=== PATIENT | male | born 1935 | race Caucasian/White ===

== ENCOUNTER 2017-04-02 21:06 | Emergency (ER) | payer OTHER, BC ==
[~2017-04-02] VITALS: Ht 177.8 cm; Wt 77.1 kg
--- NOTE | ~2017-04-02 | EKG ---
[address] [employer] [place] [address] ELECTROCARDIOGRAM REPORT Name: DANIEL FERRER [facility] [id number] Admission: 04/02/17 Attend Phys: Discharge: 04/03/17 Date of : 35 Report #: [id number] THIS REPORT FOR: //name// [facility] ED Test Date: 2017-04-02 Test Time: 21:18:55 Pat Name: DANIEL FERRER Department: Room: Gender: M Ui Designer: 99 : 1935 Requested By: Jarett Crowe Order Number: [id number] MD: Stephen Remy Measurements Intervals [place] Rate: 101 P: [place]: QRS: -25 QRSD: 85 T: 55 QT: 329 QTc: 427 Interpretive Statements Atrial fibrillation Ventricular premature complex Borderline left axis deviation Anteroseptal infarct, age indeterminate Compared to ECG 02/05/2017 13:17:32 Ventricular premature complex(es) now present Myocardial infarct finding now present Poor R-wave progression no longer present Electronically Signed On 04-03-2017 17:15:04 TREATMENT PLANT OPERATOR by Stephen Remy [email or web address] <ELECTRONICALLY SIGNED> By: Stephen Remy MD 04/03/17 1715 17 17 Stephen Remy MD /EPI
[~2017-04-02 21:06] MED LIST: CARDIZEM CD120 MG PO; COUMADIN 5 MG TA5 M1 PO
[2017-04-02 23:01] LABS: ABSOLUTE NEUTROPHILS 4.9 thou/uL (1.4-8.2); BASOPHILS 1.2 % (0.0-2.0); EOSINOPHILS 4.3 % (0.0-3.0); LYMPHOCYTES 11.9 % (24.0-44.0); MCHC 34.2 g/dL (28.0-37.0); MCV 90.6 fL (80.0-100.0); MONOCYTES 8.2 % (1.0-8.0); POLYS 74.4 % (36.0-66.0); RBC 4.19 mil/uL (4.50-6.00); RDW 14.9 % (10.5-14.5); WBC 6.5 thou/uL (4.0-11.0)
[2017-04-02 23:08] LABS: ANION GAP 6 mmol/L (7-16); BUN 18 mg/dL (7-18); CALCIUM 9.4 mg/dL (8.5-10.1); CHLORIDE 106 mmol/L (98-107); CO2 27 mmol/L (21-32); CREATININE 1.2 mg/dL (0.7-1.3); GLUCOSE 107 mg/dL (74-106); SODIUM 139 mmol/L (136-145)
[2017-04-02 23:16] LABS: ALBUMIN 3.1 g/dL (3.4-5.0); MAGNESIUM 1.7 mg/dL (1.8-2.4); SGOT 33 U/L (15-37); SGPT 20 U/L (30-65); TOTAL BILIRUBIN 0.5 mg/dL (<0.1-1.0); TOTAL PROTEIN 6.6 g/dL (6.4-8.2); TROPONIN-I < 0.04 ng/mL (<0.06)
[2017-04-02 23:17] LABS: POTASSIUM 4.9 mmol/L (3.5-5.1)
[2017-04-02 23:20] LABS: PLATELET COUNT 247 thou/uL (150-400)
[2017-04-02] MEDS ORDERED: AUGMENTIN 500-1 EACH PO (23:34)
[2017-04-03 00:04] VITALS: BP 156/86
== END 2017-04-03 00:05 | disposition home or self-care (01) ==
LOC: ER 21:06
PROVIDERS: Emergency Medicine
DX: J18.9 Pneumonia, unspecified organism (principal); J90 Pleural effusion, not elsewhere classified; Z86.73 Personal history of transient ischemic attack (TIA), and cerebral infarction without residual deficits; Z88.1 Allergy status to other antibiotic agents; Z87.891 Personal history of nicotine dependence

== ENCOUNTER 2018-03-03 | Inpatient (IN) | payer OTHER, BC ==
[2018-03-03] VITALS (8 sets, daily range): BP systolic 104–148; BP diastolic 52–78
[~2018-03-03] VITALS: Ht 177.8 cm; Wt 79.0 kg
[~2018-03-03] MED LIST changes: +AUGMENTIN 500-1 EACH PO
--- NOTE | ~2018-03-03 | HC ---
[facility] [address] [place] [address] CONSULTATION Name: DANIEL FERRER Jonelle Room #: 356-P [facility] IN .R.#: [id number] Admission: 03/03/18 Attend Phys: Clinton Benjamin MD Discharge: Date of : 35 Report #: [id number] THIS REPORT FOR: //name// CC: Clinton Benjamin DATE OF SERVICE: 03/03/2018 INPATIENT CONSULTATION PRIMARY CARE PHYSICIAN: Clinton Benjamin M.D. REASON FOR CONSULTATION: Shortness of breath. HISTORY OF PRESENT ILLNESS: The patient is an 82-year-old man with a history of moderate mitral valve stenosis in the setting of normal LV function and persistent atrial fibrillation, who presents with 1-2 days of significant dyspnea. He was placed on oxygen 2 liters, with improvement of his symptoms. His oxygen level had improved from the low 90s to 98%. He was given IV Lasix overnight and his symptoms of shortness of breath have improved. We have been following him for his mitral valve disease and rate control strategy for his atrial fibrillation. He is fully anticoagulated. He clinically is without complaints of chest pressure or tightness. His initial ECG did not show any acute ST-segment changes and his troponin levels are normal. PAST MEDICAL HISTORY: History of mitral valve stenosis, previously thought to be in the moderate range, normal LV systolic function, persistent atrial fibrillation, oral anticoagulation with a novel agent and previous pneumonia. ALLERGIES: HE HAS ALLERGIES TO DOXYCYCLINE. HOME MEDICATIONS: Include Cardizem 120 mg daily and warfarin 5 mg daily. SOCIAL HISTORY: Nonsmoker. REVIEW OF SYSTEMS: GASTROINTESTINAL: No nausea or vomiting. GENITOURINARY: No dysuria or hematuria. PULMONARY: Positive shortness of breath, positive cough. CARDIOVASCULAR: Positive shortness of breath. No chest pain. No chest pressure. No palpitations. No evidence of syncope or seizures. HEMATOLOGIC: No bleeding. GENITOURINARY: No dysuria. MUSCULOSKELETAL: No falls. [facility] [address] [place] [address] CONSULTATION Name: DANIEL FERRER Room #: [facility]#: [id number] Admission: 03/03/18 Attend Phys: Clinton Benjamin MD Discharge: Date of : 35 Report #: [id number] PHYSICAL EXAMINATION: VITAL SIGNS: Blood pressure is 110/65; pulse 96, in atrial fibrillation and temperature 36.7. GENERAL: This is a pleasant elderly male who is alert, oriented, in no apparent distress. HEENT: Eyes are intact. No facial asymmetry. NECK: Supple. No jugular venous distention. Upstrokes are normal and strong. CARDIOVASCULAR EXAMINATION: Irregular. There is a faint apical murmur. LUNGS: Clear to auscultation, but diminished breath sounds. ABDOMEN: Nontender. EXTREMITIES: No peripheral edema. NEUROLOGIC: There are no focal deficits. PSYCHIATRIC: The patient has appropriate mood and affect. DIAGNOSTIC DATA: Chest x-ray shows bilateral perihilar congestion and pulmonary edema, more prominent on the right than the left. KUB shows small and large bowel loops are normal, with no evidence of obstruction or ileus. LABORATORY DATA: Sodium is 137, potassium 4.3, chloride 103, CO2 is 22, BUN is 24 and creatinine is 1.0. INR is 2.2. IMPRESSION AND PLAN: 1. Acute diastolic heart failure. I think he will benefit from oral Lasix on discharge, probably 40 mg daily with 20 mEq of potassium. I will give him another dose of Lasix before he discharges today. 2. Persistent atrial fibrillation. We will continue with a rate control strategy; likely this was the cause of his heart failure. I am increasing his diltiazem to 180 mg daily. 3. Mitral valve stenosis. We will check an echocardiogram. By: [id number] Segundo Zuniga MD, FACC /nt
--- NOTE | ~2018-03-03 | 2DMMODE ---
[facility] [place] [address] 2 D/M-MODE ECHOCARDIOGRAM Name: DANIEL FERRER Room #: 356-P [facility] IN [facility].#: [id number] Admission: 03/03/18 Attend Phys: Clinton Benjamin, Discharge: Date of : 35 Date of Service: 03/03/18 1505 Report #: [id number] THIS REPORT FOR: //name// APPROVED REPORT Study performed: 03/03/2018 10:00:28 EXAM: Comprehensive 2D, Doppler, and color-flow Echocardiogram with contrast Patient Location: Bedside Room #: [facility] Status: routine BSA: 1.97 HR: 94 bpm BP: 110/65 mmHg Rhythm: Atrial Fibrillation Other Information Study Quality: Poor Indications Congestive Heart Failure Mitral Valve Disease CVA/TIA Atrial Fibrillation Dyspnea Echo Enhancing Agent Indication: Endocardial border delineation Agent(s) / Amount(s) Used: Optison 10 cc 2D Dimensions RVDd: 34.05 mm IVSd: 12.21 (7-11mm) LVOT Diam: 22.73 (18-24mm) LVDd: 44.95 mm PWd: 13.13 (7-11mm) Ascending Ao: 30.50 (22-36mm) LVDs: 28.53 (25-40mm) Aortic Root: 35.72 mm IVC: 17.00 mm Volumes Left Atrial Volume (Systole) Single Plane 4CH: 98.00 mL Aortic Valve AoV Peak Jonas.: 1.52 m/s AO Peak Gr.: 11.97 mmHg LVOT Max P.16 mmHg [facility] [address] [place] [address] 2 D/M-MODE ECHOCARDIOGRAM Name: DANIEL FERRER [facility] [id number] Admission: 03/03/18 Attend Phys: Clinton Benjamin, Discharge: Date of : 35 Date of Service: 03/03/18 1505 Report #: [id number] LVOT Max V: 0.20 m/s SUSAN Vmax: 0.54 cm2 Mitral Valve MV Peak Gr.: 13.03 mmHg MV Mean Gr.: 7.22 mmHg E/A Ratio: 1.5 MV Decel. Time: 100.64 ms MV E Max Jonas.: 0.21 m/s MV A Jonas.: 0.14 m/s MV Max Jonas.: 1.80 m/s MV Mean Jonas.: 1.30 m/s MV VTI: 594.42 mm MVA (PHT): 0.48 cm2 Pulmonary Valve PV Peak Jonas.: 1.16 m/s PV Peak Gr.: 5.44 mmHg Tricuspid Valve TR Peak Jonas.: 2.44 m/s RAP Estimate: 5.00 mmHg TR Peak Gr.: 23.90 mmHg PA Pressure: 29.00 mmHg Left Ventricle The left ventricle is normal size. There is normal LV segmental wall motion. Mild concentric left ventricular hypertrophy. The left ventricular systolic function is normal. The left ventricular ejection fraction is within the normal range. LVEF is 65-70%. This study is not technically sufficient to allow evaluation of the LV diastolic function due to atrial fibrillation. Right Ventricle The right ventricle is normal size. The right ventricular systolic function is normal. Atria Left atrium is dilated. Right atrium is dilated. Aortic Valve The aortic valve is normal in structure. Aortic valve is mildly calcified. Mild aortic regurgitation. There is no aortic valvular stenosis. Mitral Valve Mitral valve leaflets are moderately thickened. Severe mitral annular calcification. There is no mitral valve regurgitation noted. Moderate mitral stenosis. [address] [address] 2 D/M-MODE ECHOCARDIOGRAM Name: DANIEL FERRER Room #: 356-P [facility] IN ..#: [id number] Admission: 03/03/18 Attend Phys: Clinton Benjamin, Discharge: Date of : 35 Date of Service: 03/03/18 1505 Report #: [id number] Tricuspid Valve Tricuspid valve is not well visualized. Mild tricuspid regurgitation. Estimated PAP of 29 mmHg. Pulmonic Valve Pulmonic valve is not well visualized. Mild pulmonic regurgitation. Great Vessels The aortic root is normal in size. IVC is normal in size and collapses >50% with inspiration. Pericardium There is no pericardial effusion. Left pleural effusion noted. <Conclusion> LVEF is 65-70%. Mild concentric left ventricular hypertrophy. There is normal LV segmental wall motion. Left atrium is dilated. Right atrium is dilated. There is no aortic valvular stenosis. Mild aortic regurgitation. Moderate mitral stenosis. There is no mitral valve regurgitation noted. <ELECTRONICALLY SIGNED> By: Segundo Zuniga MD, FACC 03/03/18 1505 1505 1505 Segundo Zuniga MD, FACC /INF
--- NOTE | ~2018-03-03 | EKG ---
[address] [place] [address] ELECTROCARDIOGRAM REPORT Name: DANIEL FERRER Room #: 356-P ADM IN M.R.#: [id number] Admission: 03/03/18 Attend Phys: Clinton Benjamin MD Discharge: Date of : 35 Report #: [id number] THIS REPORT FOR: //name// [facility] ED Test Date: 2018-03-03 Test Time: 00:44:07 Pat Name: DANIEL FERRER Department: Room: 356 Gender: M Budget Consultant: KMHayder : 1935 Requested By: Jarett Crowe Order Number: [id number] MD: Nilson Drake Measurements Intervals [place] Rate: 87 P: [place]: QRS: -12 QRSD: 80 T: 37 QT: 361 QTc: 435 Interpretive Statements Atrial fibrillation Anteroseptal infarct, age indeterminate Compared to ECG 04/02/2017 21:18:55 No significant change was found Electronically Signed On 03-03-2018 8:38:58 REGIONAL SERVICE MANAGER by Nilson Drake [email or web address] <ELECTRONICALLY SIGNED> By: Nilson Drake MD, [facility] 03/03/18 0838 0044 004 Nilson Drake MD, FAC /EPI
[2018-03-03 00:49] LABS: ABSOLUTE NEUTROPHILS 5.7 thou/uL (1.4-8.2); BASOPHILS 0.8 % (0.0-2.0); EOSINOPHILS 3.3 % (0.0-3.0); HEMATOCRIT 36.1 % (42.0-52.0); HEMOGLOBIN 12.3 gm/dL (14.0-18.0); LYMPHOCYTES 7.1 % (24.0-44.0); MCH 30.7 pg (26.0-34.0); MCV 90.1 fL (80.0-100.0); MONOCYTES 8.4 % (1.0-8.0); PLATELET COUNT 313 thou/uL (150-400); POLYS 80.4 % (36.0-66.0); RBC 4.01 mil/uL (4.50-6.00); RDW 13.6 % (10.5-14.5); WBC 7.1 thou/uL (4.0-11.0)
[2018-03-03 00:59] LABS: ANION GAP 12 mmol/L (7-16); BUN 24 mg/dL (7-18); CALCIUM 9.3 mg/dL (8.5-10.1); CHLORIDE 103 mmol/L (98-107); CO2 22 mmol/L (21-32); GLUCOSE 134 mg/dL (74-106); POTASSIUM 4.3 mmol/L (3.5-5.1); SODIUM 137 mmol/L (136-145)
[2018-03-03 01:02] LABS: APTT 31.8 Seconds (24.5-32.8); INR 2.2; PROTIME 23.3 Seconds (9.3-11.4)
[2018-03-03 01:08] LABS: ALBUMIN 2.8 g/dL (3.4-5.0); MAGNESIUM 1.6 mg/dL (1.8-2.4); SGOT 15 U/L (15-37); SGPT 15 U/L (30-65); TOTAL BILIRUBIN 0.6 mg/dL (<0.1-1.0); TOTAL PROTEIN 6.6 g/dL (6.4-8.2); TROPONIN-I <0.06 ng/mL (<0.06)
[2018-03-03] MEDS ORDERED: TYLENOL EXTRA500 MG PO (03:28)
[2018-03-04 03:48] VITALS: BP 101/63
[2018-03-04] MEDS ORDERED: CARDIZEM CD 18180 M3 PO (07:36)
[2018-03-04] MEDS ORDERED: LASIX 40 MG TAB40 M1 PO (07:37)
[2018-03-04] MEDS ORDERED: POTASSIUM20 PO (07:38)
[2018-03-04 07:44] VITALS: BP 101/63
[2018-03-04 07:55] VITALS: BP 132/70
[2018-03-04 11:40] VITALS: BP 112/59
[2018-03-04 13:16] VITALS: BP 101/63
== END 2018-03-04 14:32 | disposition home health service (06) | DRG 291 ==
LOC: ER → EROBS 01:39 → 3W 01:39 → ENTRNSPT 03-04 13:44 → EDTRNSPTSTS 03-04 13:46 → 3W 03-04 14:32
PROVIDERS: Emergency Medicine
DX: I50.33 Acute on chronic diastolic (congestive) heart failure (principal); E43 Unspecified severe protein-calorie malnutrition; I48.1 Persistent atrial fibrillation; E88.09 Other disorders of plasma-protein metabolism, not elsewhere classified; I05.0 Rheumatic mitral stenosis; I35.1 Nonrheumatic aortic (valve) insufficiency; Z86.73 Personal history of transient ischemic attack (TIA), and cerebral infarction without residual deficits; Z92.21 Personal history of antineoplastic chemotherapy; Z88.8 Allergy status to other drugs, medicaments and biological substances; Z87.891 Personal history of nicotine dependence; Z79.01 Long term (current) use of anticoagulants; Z93.3 Colostomy status; Z85.038 Personal history of other malignant neoplasm of large intestine; Z92.3 Personal history of irradiation; Z79.899 Other long term (current) drug therapy
CPT/HCPCS: 10879

== ENCOUNTER 2018-09-26 09:35 | Inpatient (IN) | payer OTHER, BC ==
[~2018-09-26] VITALS: Ht 177.8 cm; Wt 77.1 kg
--- NOTE | ~2018-09-26 | O ---
[facility] [place] [address] OPERATIVE REPORT Name: DANIEL FERRER Jonelle Room #: 464-P ADM IN M.R.#: [id number] Admission: 09/26/18 ������������������ Attend Phys: Clinton Benjamin MD Discharge: ������������������ Date of : 35 Report #: [id number] THIS REPORT FOR: //name// CC: Clinton Benjamin MD DATE OF SERVICE: 09/26/2018 PREOPERATIVE DIAGNOSIS: Incarcerated left inguinal hernia. POSTOPERATIVE DIAGNOSIS: Incarcerated left inguinal hernia. OPERATIVE PROCEDURE DONE: Open repair of left-sided incarcerated inguinal hernia. OPERATING SURGEON: Can Khan MD INDICATIONS FOR THE PROCEDURE: The patient is an 83-year-old male, who presented with complaints of painful left-sided inguinal hernia. He has been having a hernia for many years, the hernia was noted to be reducible and there was tenderness over the hernia. As the patient has had multiple open abdominal surgeries, the patient was advised open repair of the same. DESCRIPTION OF PROCEDURE: After explaining to the patient in detail, an informed consent was obtained. The patient was identified in the preoperative holding area. The patient was transferred to the operating room and was placed in supine position. Sequential compression devices were placed for DVT prophylaxis. Preoperative antibiotics were given. After induction of anesthesia, the abdomen was prepped and draped in a sterile fashion. Left inguinal incision measuring approximately about 6 cm, approximately about 2 cm above the level of the inguinal ligament was made. The skin and subcutaneous tissue was divided. The external oblique was divided. The cord and cord structures were then identified along with the hernia which was gently dissected. The sac was gently dissected off and was freed from the cord and cord structures. Hernia was partly reduced. I then nevertheless still opened the hernial sac to identify the structures and the bowel, everything appeared to be viable. There were no features of strangulation or ischemic bowel. I then completely reduced the hernia after dissecting it completely. The deep inguinal ring was then approximated using 2-0 Prolene continuous sutures. Once this was done, I then placed a Prolene mesh, was trimmed to size and then I sutured the mesh onto the reflected part of the inguinal ligament inferiorly and medially on to the pubic symphysis and superiorly on to the transversus and the internal oblique. Once this was completed, I then approximated the external oblique using 0 Vicryl continuous sutures. Subcutaneous tissue was approximated using 3-0 Vicryl sutures. Skin was closed with 4-0 Monocryl. Approximately about 10 mL of lidocaine and Marcaine mix was injected into all the incisions. The [address] [address] OPERATIVE REPORT Name: DANIEL FERRRE Room #: 464-P [facility] IN .R.#: [id number] Admission: 09/26/18 ������������������ Attend Phys: Clinton Benjamin MD Discharge: ������������������ Date of : 35 Report #: [id number] patient was awoken up from anesthesia and was transferred to the recovery room in stable condition. ESTIMATED BLOOD LOSS: 5 mL. CONDITION OF THE PATIENT: Stable. FLUIDS GIVEN: Per anesthesia notes. SPECIMEN SENT: None. COMPLICATIONS: None. ANESTHESIA: General anesthesia. ��������������������������������������������� ���������������������������������������� By: ��������������������������������������������� 0818 0904 Can Khan MD /nt
[~2018-09-26 09:35] MED LIST changes: +CARDIZEM CD 18180 M3 PO; +LASIX 40 MG TAB40 M1 PO; +POTASSIUM20 PO; +TYLENOL EXTRA500 MG PO
[2018-09-26 09:37] VITALS: BP 130/70
[2018-09-26 10:44] LABS: ABSOLUTE NEUTROPHILS 4.7 thou/uL (1.4-8.2); BASOPHILS 0.7 % (0.0-2.0); EOSINOPHILS 2.5 % (0.0-3.0); HEMOGLOBIN 14.1 gm/dL (14.0-18.0); LYMPHOCYTES 14.1 % (24.0-44.0); MCH 31.2 pg (26.0-34.0); MCHC 34.4 g/dL (28.0-37.0); MCV 90.9 fL (80.0-100.0); MONOCYTES 7.4 % (1.0-8.0); PLATELET COUNT 250 thou/uL (150-400); POLYS 75.3 % (36.0-66.0); RBC 4.51 mil/uL (4.50-6.00); RDW 13.8 % (10.5-14.5); WBC 6.3 thou/uL (4.0-11.0)
[2018-09-26 10:53] LABS: CALCIUM 10.1 mg/dL (8.5-10.1); CREATININE 1.1 mg/dL (0.7-1.3); POTASSIUM 4.6 mmol/L (3.5-5.1)
[2018-09-26 10:57] LABS: APTT 38.2 Seconds (24.5-32.8); INR 4.3; PROTIME 44.7 Seconds (9.3-11.4)
[2018-09-26 10:59] LABS: ALBUMIN 3.3 g/dL (3.4-5.0); TOTAL BILIRUBIN 0.6 mg/dL (<0.1-1.0); TOTAL PROTEIN 7.5 g/dL (6.4-8.2)
[2018-09-26 19:09] VITALS: BP 127/65
[2018-09-26 19:49] VITALS: BP 128/63; BP 142/67
--- NOTE | 2018-09-26 20:13 | NUR ---
Received the pt from the ER admission assessment done VS stable. 3 units of FFP ordered to run one after the other. Labs to be drawn 10 min after the 3 unit has finished. Goal is for INR score to be less than 2. OR to be done Dr. Bill fulton collection systems foreman and awaiting results. VS stable endorsed to the night nurse.
--- NOTE | 2018-09-26 20:14 | NUR ---
Dr. Khan called and new order to get INR now.
--- NOTE | 2018-09-26 20:25 | NUR ---
Pt. finished 3rd ffp infusion and tolerated it well. Pt. O2 saturation at 78% on room air, but fingers are cool upon touch. O2 started at 2 liters and o2 sauration up to 82% and o2 increased to 3 liters per nasal canula and O2 sat at 90%. OR nurses here to transport pt. down to [facility] and aware of o2 saturations. Pt. assisted to the bathroom and he did void. He offers no c/o pain. Left to OR at 2044.
[2018-09-26 20:45] LABS: PROTIME 17.1 Seconds (9.3-11.4)
[2018-09-26 20:46] LABS: INR 1.6
[2018-09-27 00:42] VITALS: BP 127/67
--- NOTE | 2018-09-27 00:42 | NUR ---
Pt. arrived to the unit from recovery unit accompanied by staff. He is awake, but groggy. Area to left groin is bruised with dermabond intact. Pt. offers no c/o nausea. He does c/o some tenderness to his left groin.
--- NOTE | 2018-09-27 03:05 | NUR ---
Pt. resting quietly in the bed. Pain medication offered, but pt. felt he did not need any at this time.
[2018-09-27 03:08] VITALS: BP 118/80
[2018-09-27 07:25] VITALS: BP 116/60
[2018-09-27 09:44] LABS: HEMATOCRIT 40.4 % (42.0-52.0); HEMOGLOBIN 13.6 gm/dL (14.0-18.0); MCH 30.9 pg (26.0-34.0); MCHC 33.6 g/dL (28.0-37.0); MCV 92.1 fL (80.0-100.0); RBC 4.39 mil/uL (4.50-6.00); RDW 13.7 % (10.5-14.5); WBC 9.9 thou/uL (4.0-11.0)
[2018-09-27 09:51] LABS: CALCIUM 9.7 mg/dL (8.5-10.1); CREATININE 1.2 mg/dL (0.7-1.3); POTASSIUM 4.2 mmol/L (3.5-5.1)
--- NOTE | 2018-09-27 12:45 | NUR ---
PT ADMITTED RELATED TO INGUINAL HERNIA. CM REVIEWED CHART AND SPOKE WITH CARE TEAM. CM MET WITH PT AT BEDSIDE THIS DAY. PT IS A&O X4. CM ROLE INTRODUCED. PT INDICATED HE LIVES IN A HOUSE ALONE WITH 2 STEPS TO ENTER AND 12 STEPS TO BASEMENT. 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 PT INDICATED NO HH OR DME HX. PT INDICATED HE PLANS TO RETURN HOME ONCE MEDICALLY STABLE. CM TO FOLLOW INDICATED WITH DC PLANNING.
[2018-09-27 13:47] VITALS: BP 122/61
--- NOTE | 2018-09-27 15:26 | NUR ---
PT STABLE THROUGHOUT SHIFT. PT HAD NO C/O PAIN, SOA OR N/V. FAMILY IN TO VISIT. PT RESTING COMFORTABLY, WILL CONTINUE TO MONITOR.
[2018-09-27 19:39] VITALS: BP 122/61
[2018-09-28 04:18] VITALS: BP 115/73
[2018-09-28 06:33] LABS: HEMATOCRIT 37.3 % (42.0-52.0); HEMOGLOBIN 12.5 gm/dL (14.0-18.0); MCHC 33.4 g/dL (28.0-37.0); MCV 92.7 fL (80.0-100.0); RBC 4.02 mil/uL (4.50-6.00); RDW 13.7 % (10.5-14.5); WBC 8.8 thou/uL (4.0-11.0)
[2018-09-28 06:45] LABS: CALCIUM 9.4 mg/dL (8.5-10.1); POTASSIUM 4.3 mmol/L (3.5-5.1)
[2018-09-28 07:30] VITALS: BP 125/64
[2018-09-28 14:15] VITALS: BP 114/67
--- NOTE | 2018-09-28 15:07 | NUR ---
ORDERS FOR PT EVAL AND TREAT RECEIVED. Pt PROVIDED HOME INFO FOLLOWS: LIVES AT HOME ALONE WITH 2 SOCORRO, NO HANDRAIL. HAS 12 STEPS TO BASEMENT WITH HANDRAIL. AMBULATORY WITHOUT GAIT AIDS AND INDEP WITH ADLs. DOES NOT USE HOME O2. HAS GRAB BAR IN SHOWER AND BY TOILET. REPORTS NO FALLS WITHIN LAST SEVERAL MONTHS. EXPLAINED TO Pt PT ROLE IN ACUTE SETTING BUT Pt REFUSING PT EVAL AT THIS TIME. PT OFFERED TO RETURN IN THE AM TOMORROW TO COMPLETE MOBILITY ASSESSMENT BUT Pt CONTINUING TO REFUSE STATING THAT HE DOESN'T NEED PT SERVICES. STATED, "I'M NOT GETING UP. I'VE ALREADY DONE THAT TODAY." STATED HE HAS KIDS WHO CAN HELP IF NEEDED AT HOME. Pt WITH NC RESTING ON FACE NOT IN NARES AND SET TO 3L O2 BUT SATS 94% ON RA. ACUTE PT TO SIGN OFF Pt REFUSING PT EVAL.
--- NOTE | 2018-09-28 16:12 | NUR ---
PHYSICIAN INDICATED THAT PT WILL LIKELY BE MEDICALLY STABLE TO DC HOME TOMORROW. 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 CARE TEAM ATTEMPTING TO TAPER OFF O2. CM TO FOLLOW INDICATED WITH DC PLANNING.
[2018-09-28 20:09] VITALS: BP 108/64
[2018-09-28 20:23] VITALS: BP 99/46
--- NOTE | 2018-09-28 20:40 | NUR ---
PT A&OX4, VSS, DENIES PAIN. PATIENT HAS FLUIDS RUNNING, CHEST XRAY COMPLETED TODAY. DURABOND STILL INTACT, KELLOGG AND COLOSTOMY CARE COMPLETED. NO SIGNS OF DISTRESS, WILL CONTINUE TO MONITOR PATIENT.
[2018-09-28 21:04] VITALS: BP 99/46
[2018-09-29 05:59] LABS: HEMATOCRIT 36.6 % (42.0-52.0); HEMOGLOBIN 12.3 gm/dL (14.0-18.0); MCH 31.1 pg (26.0-34.0); MCHC 33.7 g/dL (28.0-37.0); MCV 92.1 fL (80.0-100.0); RBC 3.97 mil/uL (4.50-6.00); RDW 13.6 % (10.5-14.5); WBC 6.2 thou/uL (4.0-11.0)
[2018-09-29 06:11] LABS: CREATININE 0.9 mg/dL (0.7-1.3); POTASSIUM 4.7 mmol/L (3.5-5.1)
--- NOTE | 2018-09-29 08:31 | NUR ---
PROGRESS PT SLEPT ALL NIGHT VSS IVF'S INFUSING ORDERED CONTINUE TO MONITOR
[2018-09-29 08:59] VITALS: BP 125/77
[2018-09-29] MEDS ORDERED: AUGMENTIN 875-1 EACH PO (14:21)
[2018-09-29 14:33] VITALS: BP 125/77
[2018-09-29 15:49] VITALS: BP 125/77
--- NOTE | 2018-09-29 18:35 | NUR ---
PT DISCHARGED HOME WITH HOME HEALTH. PT A&OX4, VSS, WEANED OFF O2 TODAY. PT DENIES CHEST PAIN AND SHORTNESS OF AIR AND PAIN. KELLOGG AND IV WERE REMOVED TODAY. DISCHARGE INSTRUCTIONS AND PRESCRIPTION INSTRUCTIONS GIVEN TO PATIENT. CHEST XRAY DONE TODAY. ALL BELONGINGS WITH PATIENT
== END 2018-09-29 18:32 | disposition home health service (06) | DRG 350 ==
LOC: ER 09:35 → EROBS 12:29 → 4W 12:29
PROVIDERS: Physician Assistant; Surgery; ADMIT Family Medicine
PROC: 0YU60JZ Supplement Left Inguinal Region with Synthetic Substitute, Open Approach (ICD-10-PCS; principal; 2018-09-26)
PROC: 30233K1 Transfusion of Nonautologous Frozen Plasma into Peripheral Vein, Percutaneous Approach (ICD-10-PCS; principal; 2018-09-26)
DX: K40.30 Unilateral inguinal hernia, with obstruction, without gangrene, not specified as recurrent (principal); J69.0 Pneumonitis due to inhalation of food and vomit; K56.609 Unspecified intestinal obstruction, unspecified as to partial versus complete obstruction; N17.9 Acute kidney failure, unspecified; I48.91 Unspecified atrial fibrillation; I05.0 Rheumatic mitral stenosis; Z86.73 Personal history of transient ischemic attack (TIA), and cerebral infarction without residual deficits; Z85.038 Personal history of other malignant neoplasm of large intestine; Z93.3 Colostomy status; Z92.21 Personal history of antineoplastic chemotherapy; Z87.891 Personal history of nicotine dependence; Z88.8 Allergy status to other drugs, medicaments and biological substances; Z90.49 Acquired absence of other specified parts of digestive tract
CPT/HCPCS: 10040; 50010; 50101; 50386; 50417; 50455; 50507; 54118; 56524; 56525; 56526; 62110; 62900; 70005

== ENCOUNTER → 2019-01-04 | Outpatient (CLI) | payer OTHER, BC ==
[~2019-01-04] MED LIST changes: +AUGMENTIN 875-1 EACH PO
--- NOTE | 2019-01-04 15:18 | 2DMMODE ---
[facility] [place] [address] 2 D/M-MODE ECHOCARDIOGRAM Name: DANIEL FERRER [facility]#: [id number] Admission: 01/04/19 Attend Phys: Memo Carr MD Discharge: Date of : 35 Report #: [id number] THIS REPORT FOR: //name// APPROVED REPORT Study performed: 01/04/2019 14:13:09 EXAM: Comprehensive 2D, Doppler, and color-flow Echocardiogram Patient Location: Out-Patient Status: routine BSA: 1.93 HR: 76 bpm BP: 124/72 mmHg Rhythm: Atrial Fibrillation Other Information Study Quality: Good Indications Mitral stenosis. Hx: Afib, TIA. 2D Dimensions RVDd: 35.80 mm IVSd: 12.41 (7-11mm) LVOT Diam: 22.19 (18-24mm) LVDd: 40.65 mm PWd: 12.02 (7-11mm) Ascending Ao: 30.97 (22-36mm) LVDs: 32.49 (25-40mm) Aortic Root: 37.21 mm Volumes Left Atrial Volume (Systole) Single Plane 4CH: 116.79 mL Single Plane 2CH: 118.02 mL LA ESV Index: 65.00 mL/m2 Aortic Valve AoV Peak Jonas.: 1.23 m/s AO Peak Gr.: 6.05 mmHg LVOT Max P.28 mmHg LVOT Max V: 0.90 m/s SUSAN Vmax: 2.85 cm2 Mitral Valve MV Peak Gr.: 30.05 mmHg MV Mean Gr.: 19.67 mmHg MV Decel. Time: 767.92 ms [facility] [address] [place] [address] 2 D/M-MODE ECHOCARDIOGRAM Name: DANIEL FERRER Room #: [facility]#: [id number] Admission: 01/04/19 Attend Phys: Memo Carr MD Discharge: Date of : 35 Report #: [id number] Max Jonas.: 2.74 m/s MV Mean Jonas.: 2.18 m/s MV VTI: 781.89 mm MV PHT: 266.62 ms MVA (PHT): 0.83 cm2 Pulmonary Valve PV Peak Jonas.: 0.83 m/s PV Peak Gr.: 2.78 mmHg Tricuspid Valve TR Peak Jonas.: 3.16 m/s RAP Estimate: 5.00 mmHg TR Peak Gr.: 40.06 mmHg PA Pressure: 45.00 mmHg Left Ventricle The left ventricle is normal size. There is normal LV segmental wall motion. Mild concentric left ventricular hypertrophy. Left ventricular systolic function is normal. LVEF is 60%. This study is not technically sufficient to allow evaluation of the LV diastolic function due to atrial fibrillation. Right Ventricle The right ventricle is normal size. The right ventricular systolic function is normal. Atria Left atrium is severely dilated. Right atrium is moderately dilated. Aortic Valve The Aortic valve is sclerotic. Mild aortic regurgitation. There is no aortic valvular stenosis. Mitral Valve Severely calcified mitral valve annulus. Restricted motion of the leaflets. Severe Mitral Stenosis with an averaged mean gradient of 20mmHg. Mild mitral regurgitation. Moderate to severe mitral stenosis. Tricuspid Valve The tricuspid valve is normal in structure. Moderate tricuspid regurgitation. Estimated PAP is 45mmHg. Pulmonic Valve The pulmonary valve is normal in structure. Mild pulmonic regurgitation. [facility] [place] [address] 2 D/M-MODE ECHOCARDIOGRAM Name: DANIEL FERRER Room #: [facility]#: [id number] Admission: 01/04/19 Attend Phys: Memo Carr MD Discharge: Date of : 35 Report #: [id number] Great Vessels The aortic root is normal in size. The ascending aorta is normal in size. IVC is normal in size and collapses >50% with inspiration. Pericardium There is no pericardial effusion. <Conclusion> Mild concentric left ventricular hypertrophy. LVEF is 60%. Left atrium is severely dilated. The Aortic valve is sclerotic. Mild aortic regurgitation. Severely calcified mitral valve annulus. Restricted motion of the leaflets. Severe Mitral Stenosis with an averaged mean gradient of 20mmHg. Mild mitral regurgitation. Moderate tricuspid regurgitation. Estimated PAP is 45mmHg. <ELECTRONICALLY SIGNED> By: Memo Carr MD, FACC 01/04/19 151 16 16 Memo Carr MD, FAC /INF
== END ==
LOC: CV 09:23
DX: I08.8 Other rheumatic multiple valve diseases (principal); I48.91 Unspecified atrial fibrillation; G45.9 Transient cerebral ischemic attack, unspecified; Z88.8 Allergy status to other drugs, medicaments and biological substances

== ENCOUNTER 2020-01-24 10:58 | Inpatient (IN) | payer OTHER, BC ==
[~2020-01-24] VITALS: Ht 177.8 cm; Wt 77.1 kg
[2020-01-24 11:00] VITALS: BP 137/82
[2020-01-24 12:05] LABS: ABSOLUTE NEUTROPHILS 5.2 thou/uL (1.4-8.2); BASOPHILS 0.7 % (0.0-2.0); EOSINOPHILS 1.3 % (0.0-3.0); HEMATOCRIT 39.5 % (42.0-52.0); HEMOGLOBIN 13.3 gm/dL (14.0-18.0); LYMPHOCYTES 9.8 % (24.0-44.0); MCH 31.6 pg (26.0-34.0); MCHC 33.8 g/dL (28.0-37.0); MCV 93.7 fL (80.0-100.0); MONOCYTES 7.6 % (1.0-8.0); PLATELET COUNT 244 thou/uL (150-400); POLYS 80.6 % (36.0-66.0); RBC 4.22 mil/uL (4.50-6.00); RDW 14.1 % (10.5-14.5); WBC 6.4 thou/uL (4.0-11.0)
[2020-01-24 12:16] LABS: CALCIUM 9.4 mg/dL (8.5-10.1); CREATININE 1.2 mg/dL (0.7-1.3); POTASSIUM 3.9 mmol/L (3.5-5.1)
[2020-01-24 12:20] LABS: APTT 33.1 Seconds (24.5-32.8); INR 2.3; PROTIME 23.2 Seconds (9.3-11.4)
[2020-01-24 12:22] LABS: ALBUMIN 3.4 g/dL (3.4-5.0); TOTAL BILIRUBIN 0.4 mg/dL (0.2-1.0); TOTAL PROTEIN 7.1 g/dL (6.4-8.2)
[2020-01-24 14:25] LABS: URINE BILIRUBIN NEGATIVE (Negative); URINE BLOOD TRACE (Negative); URINE CLARITY CLEAR; URINE COLOR YELLOW; URINE GLUCOSE-RANDOM* NEGATIVE (Negative); URINE KETONES NEGATIVE (Negative); URINE LEUKOCYTES-REFLEX NEGATIVE (Negative); URINE NITRITE-REFLEX NEGATIVE (Negative); URINE PROTEIN (DIPSTICK) NEGATIVE (Negative); URINE SPECIFIC GRAVITY <= 1.005 (1.005-1.035); URINE UROBILINOGEN 0.2 E.U./dl (0.2-1.0)
[2020-01-24 15:55] VITALS: BP 137/82
[2020-01-24 17:30] VITALS: BP 127/84
[2020-01-24 20:20] VITALS: BP 122/71
--- NOTE | 2020-01-24 21:11 | NUR ---
ASSUMED CARE OF PT AT 1715 WHEN PT BROUGHT TO UNIT FROM ED. RECEIVED REORT FROM TEA ORELLANA PRIOR TO TRANSFER. PT DENIES PAIN AT THIS TIME. PER PT SMALL STOOL REMOVED FROM COLOSTOMY AT THIS TIME. PT REPORTS FEELING HUNGRY, PER SURGERY WILL ATTEMPT TO MANAGE PT MEDICALLY. DR VALLADARES NOTIFIED AND GAVE ORDER FOR REGULAR DIET TOLERATED. PT TOLERATED REGULAR DINNER. ADMISSION HISTORY AND ASSESSMENT COMPLETED. ADMISSION V/S, EDUCATION, WEIGHT COMPLETED. PT IN BED. FALL PRECAUTIONS IN PLACE AND NURSING WILL CONTINUE TO MONITOR.
--- NOTE | 2020-01-25 01:46 | NUR ---
assumed care approx 1900 evening 01/23. pt sitting up in bed alert and oriented x4, appropriate and cooperative. colostomy intact, emptied moderate/large amt soft and formed stool. pt denies pain. pt voiding per urinal. pt appears to be sleeping soundly with hourly rounding checks. bed alarm on and call light in reach.will continue to monitor.
[2020-01-25 04:21] VITALS: BP 100/66
[2020-01-25 07:29] VITALS: BP 109/60
--- NOTE | 2020-01-25 13:23 | NUR ---
ASSESSMENT: CM REVIEWED CHART AND SPOKE WITH PATIENT. PT LIVES AT HOME IN A HOUSE BY HIMSELF. PT WAS ADMITTED DUE TO ABDOMINAL PAIN. PT HAS HX OF COLON CANCER AND HAS A PARASTOMAL HERNIA. PT IS CURRENTLY ON IV ANBX. PT REPORTS HE HAS ABOUT 2 STEPS TO ENTER HIS HOME AND MOST HIS NEEDS ARE ON THE MAIN LEVEL. PT REPORTS HAVING LAUNDRY IN THE BASEMENT BUT STATES HE IS GETTING HIS WASHED AND DRYER MOVED TO THE MAIN FLOOR NEXT WEEK. PT REPORTS HAVING SUPPORTIVE CHILDREN ONE SON, AND TWO DAUGHTERS THAT LIVES NEARBY. PT REPORTS HE HAS NOT HAD HH IN THE PAST. CM DISCUSSED ROLE AND SPOKE WITH ATTENDING. POSSIBLE PLANS FOR DISCHARGE IN THE NEXT 1-2 DAYS. PT AND ATTENDING DO NOT FEEL PT WILL NEED HH. LIKELY PLAN TO DISCHARGE HOME NO NEEDS. CM SPOKE WITH PTS DAUGHTER TIM TO UPDATE.
[2020-01-25 16:15] VITALS: BP 108/65
--- NOTE | 2020-01-25 17:57 | NUR ---
PT ASSESSED AT START OF SHIFT. DOING WELL. HAD SEVERAL BM'S PER COLOSTOMY. ABLE TO EAT AND DRINK W/O NAUSEA. NO C/O PAIN. UP IN THE HALLS TO AMBULATE AND SAT UP IN CHAIR MOST OF SHIFT. DR. VALLADARES IN EARLY TO SEE PT - PLAN POSSIBLE DISCHARGE TOMORROW.
[2020-01-25 19:06] VITALS: BP 112/63
[2020-01-25 23:24] VITALS: BP 126/83
[2020-01-26 05:03] LABS: HEMATOCRIT 37.8 % (42.0-52.0); HEMOGLOBIN 12.6 gm/dL (14.0-18.0); MCH 31.5 pg (26.0-34.0); MCHC 33.4 g/dL (28.0-37.0); MCV 94.1 fL (80.0-100.0); RBC 4.01 mil/uL (4.50-6.00); RDW 14.1 % (10.5-14.5); WBC 7.1 thou/uL (4.0-11.0)
[2020-01-26 06:09] LABS: CALCIUM 9.1 mg/dL (8.5-10.1); CREATININE 0.8 mg/dL (0.7-1.3); POTASSIUM 4.6 mmol/L (3.5-5.1)
[2020-01-26] MEDS ORDERED: METRONIDAZOLE500 M4 PO (07:02)
--- NOTE | 2020-01-26 07:11 | NUR ---
ASSUMED PT CARE AROUND 1930. AXOX4. VSS. C/O SOA. VSS. CTA BILAT. PUT ON 2L O2 FOR COMFORT. GAVE FUROSEMIDE EARLY UNDER 'S INSTRUCTION. NO S/S ACUTE DISTRESS NOTED OR REPORTED AT THIS TIME. WILL CONT TO MONITOR FOR ANY CHANGES IN CONDITION.
[2020-01-26 07:13] VITALS: BP 117/73
[2020-01-26 10:38] VITALS: BP 117/73
--- NOTE | 2020-01-26 10:48 | NUR ---
PT A&OX4, VSS, DENIES PAIN. LUNGS CLEAR, BREATHING REGULAR. PATIENT 97% ON ROOM AIR. ABDOMEN SOFT AND SOUNDS ACTIVE. NO C/O SOA AT THIS TIME. NO SIGNS OF DISTRESS. PATIENT DISCHARGING HOME. IV REMOVED, ALL BELONGINGS WITH PATIENT.
== END 2020-01-26 12:14 | disposition home or self-care (01) | DRG 393 ==
LOC: ER 10:58 → 4S 17:18
PROVIDERS: Physician Assistant; ADMIT Family Medicine; ATTEND Family Medicine
DX: K43.5 Parastomal hernia without obstruction or gangrene (principal); I50.23 Acute on chronic systolic (congestive) heart failure; N17.9 Acute kidney failure, unspecified; I50.22 Chronic systolic (congestive) heart failure; K80.80 Other cholelithiasis without obstruction; K12.1 Other forms of stomatitis; I48.91 Unspecified atrial fibrillation; Z86.73 Personal history of transient ischemic attack (TIA), and cerebral infarction without residual deficits; Z92.21 Personal history of antineoplastic chemotherapy; Z92.3 Personal history of irradiation; Z85.038 Personal history of other malignant neoplasm of large intestine; Z93.3 Colostomy status; Z87.891 Personal history of nicotine dependence; Z88.8 Allergy status to other drugs, medicaments and biological substances; Z90.49 Acquired absence of other specified parts of digestive tract; Z86.718 Personal history of other venous thrombosis and embolism
CPT/HCPCS: 10102

== ENCOUNTER 2020-12-23 08:44 | Inpatient (IN) | payer OTHER, BC ==
[~2020-12-23] VITALS: Ht 177.8 cm; Wt 71.6 kg
[~2020-12-23 08:44] MED LIST changes: +METRONIDAZOLE500 M4 PO
[2020-12-23 08:48] VITALS: BP 155/82
[2020-12-23 09:31] LABS: ABSOLUTE NEUTROPHILS 6.8 thou/uL (1.4-8.2); BASOPHILS 0.4 % (0.0-2.0); EOSINOPHILS 0.2 % (0.0-3.0); HEMATOCRIT 40.2 % (42.0-52.0); HEMOGLOBIN 13.6 gm/dL (14.0-18.0); MCH 31.3 pg (26.0-34.0); MCHC 33.9 g/dL (28.0-37.0); MCV 92.4 fL (80.0-100.0); MONOCYTES 5.2 % (1.0-8.0); PLATELET COUNT 227 thou/uL (150-400); POLYS 90.2 % (36.0-66.0); RBC 4.35 mil/uL (4.50-6.00); RDW 14.3 % (10.5-14.5); WBC 7.5 thou/uL (4.0-11.0)
[2020-12-23 09:35] LABS: CALCIUM 9.4 mg/dL (8.5-10.1); CREATININE 1.1 mg/dL (0.7-1.3); POTASSIUM 4.5 mmol/L (3.5-5.1)
[2020-12-23 11:09] LABS: INR 2.4; PROTIME 25.1 Seconds (10.5-12.1)
--- NOTE | 2020-12-23 11:27 | EKG ---
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: IG : 1935 Requested By: Clinton Benjamin Order Number: [id number] MD: Darrel Cano Measurements Intervals [place] Rate: 111 P: [place]: QRS: 238 QRSD: 82 T: 31 QT: 317 QTc: 431 Interpretive Statements Atrial fibrillation Ventricular premature complex Anteroseptal infarct, age indeterminate Compared to ECG 03/03/2018 00:44:07 Ventricular premature complex(es) now present Myocardial infarct finding still present Electronically Signed On 12-23-2020 11:27:05 CDT by Darrel Cano [email or web address] <ELECTRONICALLY SIGNED> By: Darrel Cano MD, [facility] 12/23/20 1127 [phone] Darrel Cano MD, [facility] /EPI
--- NOTE | 2020-12-23 14:44 | 2DMMODE ---
[facility] [address] [place] [address] 2 D/M-MODE ECHOCARDIOGRAM Name: DANIEL FERRER Room #: 170-9 ADM IN M.R.#: [id number] Admission: 12/23/20 Attend Phys: Clinton Benjamin MD Discharge: Date of : 35 Report #: [id number] THIS REPORT FOR: cc: Clinton Benjamin MD, Neal A. MD Santiago, Patrick MD [facility] ~ APPROVED REPORT Study performed: 12/23/2020 13:54:44 EXAM: Comprehensive 2D, Doppler, and color-flow Echocardiogram Patient Location: ER Room #: 9 Status: routine BSA: 1.90 HR: 106 bpm BP: 118/70 mmHg Rhythm: Atrial Fibrillation Other Information Technically limited study due to Atrial fibrillation. Indications Mitral Valve Disease Atrial Fibrillation Dyspnea 2D Dimensions IVC: 23.00 mm Aortic Valve AoV Peak Jonas.: 1.41 m/s AO Peak Gr.: 8.02 mmHg LVOT Max P.32 mmHg LVOT Max V: 1.04 m/s Mitral Valve MV Peak Gr.: 35.27 mmHg MV Mean Gr.: 23.86 mmHg MV Max Jonas.: 2.97 m/s MV Mean Jonas.: 2.36 m/s MV VTI: 865.01 mm MV PHT: 240.64 ms MVA (PHT): 0.91 cm2 [facility] [address] [place] [address] 2 D/M-MODE ECHOCARDIOGRAM Name: DANIEL FERRER Room #: 170-9 ADM IN M.R.#: [id number] Admission: 12/23/20 Attend Phys: Clinton Benjamin, Discharge: Date of : 35 Report #: [id number] Pulmonary Valve PV Peak Jonas.: 1.01 m/s PV Peak Gr.: 4.10 mmHg Tricuspid Valve TR Peak Jonas.: 3.62 m/s TR Peak Gr.: 52.63 mmHg PA Pressure: 63.00 mmHg Left Ventricle The left ventricle is normal size. There is normal LV segmental wall motion. Mild concentric left ventricular hypertrophy. Left ventricular systolic function is hyperdynamic. LVEF is >70%. This study is not technically sufficient to allow evaluation of the LV diastolic function due to atrial fibrillation. Right Ventricle The right ventricle is normal size. The right ventricular systolic function is normal. Atria Left atrium is dilated. Right atrium is dilated. Aortic Valve The aortic valve is normal in structure. The Aortic valve is sclerotic. Trace to mild aortic regurgitation. There is no aortic valvular stenosis. Mitral Valve There is heavy mitral annular calcification Mitral valve leaflets are calcified. Mitral valve leaflets have restricted excursion. Mild mitral regurgitation. Severe mitral stenosis. Tricuspid Valve The tricuspid valve is normal in structure. There is moderate tricuspid regurgitation. Estimated PAP 63 mmHg. There is moderate pulmonary hypertension. Pulmonic Valve The pulmonary valve is normal in structure. Mild pulmonic regurgitation. Great Vessels The aortic root is normal in size. IVC is dilated and collapses >50% with inspiration. [facility] [address] [place] [address] 2 D/M-MODE ECHOCARDIOGRAM Name: DANIEL FERRER Room #: 170-9 ADM IN M.R.#: [id number] Admission: 12/23/20 Attend Phys: Clinton Benjamin, Discharge: Date of : 35 Report #: [id number] Pericardium There is no pericardial effusion. <Conclusion> Normal left ventricular size/mild LVH Ejection fraction 60% Abnormal right ventricle size/function Moderate left atrial enlargement Mild left atrial enlargement Aortic valve sclerosis without stenosis Trace aortic valve insufficiency Severe mitral annular calcification Severe mitral valve stenosis mean gradient 24 mmHg Normal aortic root size No pericardial effusion <ELECTRONICALLY SIGNED> By: Darrel Cano MD, FACC 12/23/20 1443 42 42 Darrel Cano MD, FACC /INF
[2020-12-23 18:52] VITALS: BP 93/66
[2020-12-23 19:45] VITALS: BP 107/63
[2020-12-23 20:45] VITALS: BP 122/68
[2020-12-23 23:20] VITALS: BP 112/67
[2020-12-24 04:42] VITALS: BP 102/66
[2020-12-24 04:55] LABS: HEMATOCRIT 38.6 % (42.0-52.0); HEMOGLOBIN 13.2 gm/dL (14.0-18.0); MCH 31.5 pg (26.0-34.0); MCHC 34.1 g/dL (28.0-37.0); MCV 92.4 fL (80.0-100.0); RBC 4.18 mil/uL (4.50-6.00); RDW 14.4 % (10.5-14.5); WBC 7.6 thou/uL (4.0-11.0)
[2020-12-24 05:18] LABS: CALCIUM 9.3 mg/dL (8.5-10.1); CREATININE 1.1 mg/dL (0.7-1.3); POTASSIUM 4.9 mmol/L (3.5-5.1)
[2020-12-24 07:15] VITALS: BP 121/69
--- NOTE | 2020-12-24 08:02 | NUR ---
ASSUMED CARE OF PT FROM ED AT 2020HRS. PT IS AOX4 AND LETS NEEDS BE KNOWN. FALL PRECAUTION IN PLACE. PT WAS ORIENTED TO THE UNIT AND HIS ROOM. PT WAS ABLE TO ANSWER ALL ADMISSION RELATED QUESTIONS AND ANSWER ADMISSION RELATED QUESTIONS. 2L O2 CONTINUED. PT WAS ABLE TO GET COMFORTABE AND SLEEP PART OF THE SHIFT. VSS AND NO S/S OF ACUTE DISTRESS. REPORT GIVEN TO AM RN.
[2020-12-24 11:10] VITALS: BP 125/71
[2020-12-24 15:20] VITALS: BP 137/83
[2020-12-24 20:15] VITALS: BP 121/75
--- NOTE | 2020-12-25 04:04 | NUR ---
RECEIVED THIS PATIENT AT 1900H.PATIENT IS ALERT AND ORIENTEDX4.ON NASAL CANNULA AT 3LPM, STAURATING WELL.NOT IN PAIN OR DISTRESS.FALL PREVENTION MEASURES MAINTAINED.ALL NEEDS ATTENDED.
[2020-12-25 04:50] VITALS: BP 122/73
[2020-12-25 08:00] VITALS: BP 119/62
[2020-12-25] MEDS ORDERED: CEFDINIR300 MG PO (10:42)
[2020-12-25] MEDS ORDERED: K-DUR 20 MEQ T20 MEQ PO (10:42)
--- NOTE | 2020-12-25 11:45 | NUR ---
OT RECEIVED ORDERS FOR EVAL AND TREAT, CHART REVIEWED. P.T. EVALED THIS MORNING AND PLACES PT. AD DAVID AND D/C'D. OT SPOKE WITH PT. AND EXPLAINED ROLE, PT. REPORTS UNDERSTANDING AND FORMALLY DECLINES OT EVAL. STATES THERAPY IS NOT NECESSARY HE IS UP AD DAVID. OT AND PT. IN AGREEMENT, OT D/C.
[2020-12-25 13:04] VITALS: BP 106/52
[2020-12-25 14:00] VITALS: BP 106/52
[2020-12-25 14:56] VITALS: BP 106/52
== END 2020-12-25 14:30 | disposition home or self-care (01) | DRG 193 ==
LOC: ER 08:44 → 2N 10:09 → EROBS 10:09 → 2N 19:41
PROVIDERS: Emergency Medicine; Nurse Practitioner; ADMIT Family Medicine; ATTEND Family Medicine
DX: J18.9 Pneumonia, unspecified organism (principal); I50.33 Acute on chronic diastolic (congestive) heart failure; J96.00 Acute respiratory failure, unspecified whether with hypoxia or hypercapnia; R65.11 Systemic inflammatory response syndrome (SIRS) of non-infectious origin with acute organ dysfunction; I48.21 Permanent atrial fibrillation; I05.0 Rheumatic mitral stenosis; Z20.822 Contact with and (suspected) exposure to COVID-19; Z79.01 Long term (current) use of anticoagulants; Z86.73 Personal history of transient ischemic attack (TIA), and cerebral infarction without residual deficits; Z92.21 Personal history of antineoplastic chemotherapy; Z93.3 Colostomy status; Z85.038 Personal history of other malignant neoplasm of large intestine; Z92.3 Personal history of irradiation; Z88.8 Allergy status to other drugs, medicaments and biological substances; Z87.891 Personal history of nicotine dependence; Z79.899 Other long term (current) drug therapy; Z90.49 Acquired absence of other specified parts of digestive tract; Z23 Encounter for immunization
CPT/HCPCS: 10081

== ENCOUNTER 2021-02-21 09:54 | Inpatient (IN) | payer OTHER, BC ==
[~2021-02-21] VITALS: Ht 177.8 cm; Wt 73.5 kg
[~2021-02-21 09:54] MED LIST changes: +CEFDINIR300 MG PO; +K-DUR 20 MEQ T20 MEQ PO
[2021-02-21 10:10] VITALS: BP 143/73
[2021-02-21 11:22] LABS: BASOPHILS 0.5 % (0.0-2.0); EOSINOPHILS 0.3 % (0.0-3.0); HEMATOCRIT 39.7 % (42.0-52.0); HEMOGLOBIN 13.2 gm/dL (14.0-18.0); MCH 30.7 pg (26.0-34.0); MCHC 33.2 g/dL (28.0-37.0); MCV 92.3 fL (80.0-100.0); MONOCYTES 7.4 % (1.0-8.0); PLATELET COUNT 262 thou/uL (150-400); POLYS 86.8 % (36.0-66.0); RDW 14.6 % (10.5-14.5); WBC 5.7 thou/uL (4.0-11.0)
[2021-02-21 11:26] LABS: INR 3.22; PROTIME 33.2 Seconds (10.5-12.1)
[2021-02-21 11:27] LABS: CALCIUM 10.1 mg/dL (8.5-10.1); CREATININE 1.1 mg/dL (0.7-1.3); POTASSIUM 4.5 mmol/L (3.5-5.1)
[2021-02-21 15:31] LABS: CHOLESTEROL 154 mg/dL (<200); HDL CHOLESTEROL 44 mg/dL (>40); LDL CHOLESTEROL 97 mg/dL (<100); TC:HDL 3.5 Ratio (Not establshd); TRIGLYCERIDE 67 mg/dL (<150); VLDL 13 mg/dL (<40)
[2021-02-21 15:35] VITALS: BP 104/62
[2021-02-21 15:36] LABS: SERUM ASSESSMENT Clear
[2021-02-22] VITALS (7 sets, daily range): BP systolic 124–140; BP diastolic 64–99
--- NOTE | 2021-02-22 05:14 | NUR ---
PATIENT IS A NEW ADMISSION TO THE UNIT THIS SHIFT. HE ARRIVED VIA CART FROM THE ER AND WAS ABLE TO AMBULATE TO THE BED INCIDENT FREE. PATIENT IS ALERT AND ORIENTED AND ABLE TO COMMUNICATE NEEDS AND PARTICIPATE IN CARE. LARRY GTT AT 5 WITH PATIENTS AFIB IN LOW 100'S. NURSE TO COMPLETE ADMISSION AND INITIATE PLAN OF CARE.
[2021-02-22 06:14] LABS: HEMATOCRIT 37.9 % (42.0-52.0); HEMOGLOBIN 12.3 gm/dL (14.0-18.0); MCH 30.2 pg (26.0-34.0); MCHC 32.4 g/dL (28.0-37.0); RBC 4.08 mil/uL (4.50-6.00); RDW 15.1 % (10.5-14.5)
[2021-02-22 06:48] LABS: CALCIUM 9.8 mg/dL (8.5-10.1); POTASSIUM 4.5 mmol/L (3.5-5.1)
--- NOTE | 2021-02-22 12:43 | EKG ---
[address] [address] ELECTROCARDIOGRAM REPORT Name: DANIEL FERRER Room #: 214-P ADM IN M.R.#: [id number] Admission: 02/21/21 Attend Phys: Dave Steven MD Discharge: Date of : 35 Report #: [id number] [facility] ED Test Date: 2021-02-21 Test Time: 10:15:27 Pat Name: DANIEL FERRER Department: Room: 214 Gender: M Electromechanical Inspector: MARLENE : 1935 Requested By: Yahir Steele Order Number: [id number] MD: Stephen Remy Measurements Intervals [place] Rate: 119 P: [place]: QRS: 257 QRSD: 85 T: 86 QT: 303 QTc: 427 Interpretive Statements Atrial fibrillation Left anterior fascicular block Anterior infarct, old Compared to ECG 12/23/2020 08:57:36 Electronically Signed On 02-22-2021 12:43:15 MECHANISM INSPECTOR by Stephen Remy [email or web address] <ELECTRONICALLY SIGNED> By: Stephen Remy MD 02/22/21 1243 D: 125 1015 Stephen Remy MD /HAILEY
--- NOTE | 2021-02-22 18:06 | NUR ---
ASSESSMENT CHARTED - MEDS PER PATY SMITH DIET AND FLUIDS. PT SITTING ON THE SIDE OF THE BED. BECOMES SOB WITH MIN EXERTION. HR WHEN SITTING AT SIDE OF BED 100 -110. WHEN LAYING IN 80'S. PT STARTED ON PO CARDIZEM AND IV CARDIZEM D/C 1 HOUR POST PO ADMIN. NO CO'S OF PAIN OR NAUSEA. OSTOMY WITH DRAINAGE. - WARFRIN HELD ORDERED. NO CO'S AT THE PRESENT TIME.
[2021-02-23 04:05] LABS: ALBUMIN 2.8 g/dL (3.4-5.0); CALCIUM 9.2 mg/dL (8.5-10.1); CREATININE 0.9 mg/dL (0.7-1.3); PHOSPHORUS 3.2 mg/dL (2.6-4.7); POTASSIUM 4.5 mmol/L (3.5-5.1)
[2021-02-23 04:45] VITALS: BP 131/69
[2021-02-23 08:07] VITALS: BP 102/53
[2021-02-23 11:18] VITALS: BP 138/66
[2021-02-23 15:20] VITALS: BP 147/59
--- NOTE | 2021-02-23 18:15 | NUR ---
NO FALLS OR INJURIES THIS SHIFT. ALL SAFETY MEASURES IN PLACE. PATIENT ABLE TO COMPLETE ADLs INDEPENDENTLY. VSS. NO S/S OF INFECTION. NO C/O PAIN. PATIENT TITRATED DOWN TO 3LNC THIS SHIFT. REMAINS IN CONTROLLED AFIB ON TELE. WARFARIN RESTARTED TONIGHT. PATIENT UP IN CHAIR THIS AFTERNOON. C/O CONTISPATION, PRUNE JUICE GIVEN. PATIENT WILL DC ONCE MEDICALLY STABLE.
[2021-02-23 20:15] VITALS: BP 137/53
[2021-02-23 23:12] VITALS: BP 137/53
[2021-02-24 03:19] LABS: INR 2.5; PROTIME 26.1 Seconds (10.5-12.1)
[2021-02-24 03:24] LABS: ALBUMIN 2.7 g/dL (3.4-5.0); CALCIUM 9.4 mg/dL (8.5-10.1); CREATININE 0.9 mg/dL (0.7-1.3); POTASSIUM 4.8 mmol/L (3.5-5.1)
[2021-02-24 04:45] VITALS: BP 112/61
--- NOTE | 2021-02-24 05:22 | NUR ---
assumed pt care at 1900, alert and oriented, afib on tele, hr controlled, denies pain, remains on 3l of o2 via nasal cannula, o2sats stable, other vss, no needs at this time, will pass on report.
[2021-02-24 07:40] VITALS: BP 113/51
[2021-02-24 11:35] VITALS: BP 122/71
--- NOTE | 2021-02-24 11:43 | NUR ---
Met with patient who resides at home in independent home. All needs on one level. he has stair glide to basement where laundry located. Patient uses a cane in community. Sp with therapist plan to obtain a walker for patient for home. Discussed dc planning and home health care. Patient declines he does not want HH care. He reports children live nearby and can assist. He does his own cooking and cont to drive. Patient currently on oxygen which he does not wear at home. Casemgt following.
--- NOTE | 2021-02-24 14:42 | NUR ---
Nutrition: pt seen due to high risk screen for poor intake and weight loss. Admit with CHF, afib/RVR. Current weight up 5# from 2 months ago, down 8# from a year ago. Not significant. Follow trends with diuresis/lasix. Pt was sleeping soundly at time of visit so spoke with nsg. PO intake 90-100% of meals this admit on heart healthy diet. Nsg confirms. Noted pt with low vitamin D status-18.5. RECommend order vitamin D supplementation. Will continue to monitor weight status and po intake trends for possible intervention need. Consider low nutrition risk at this time.
[2021-02-24 15:30] VITALS: BP 126/98
--- NOTE | 2021-02-24 16:46 | NUR ---
NO FALLS OR INJURIES THIS SHIFT. ALL SAFETY MEASURES IN PLACE. VSS. REMAINS ON 3LNC, ALTHOUGH PATIENT HAS BEEN FOUND TO HAVE O2 ON THE TOP OF HIS NOSE. PATIENT UP WITH ONE, STANDS NEXT TO BED TO USE URINAL. LASIX ORDERED BID TODAY. NEW IV PLACED IN RIGHT AC AFTER LEFT FOREARM CAME OUT. NO C/O PAIN. MOVES SELF IN BED. TOLERATES DIET, EATS APPX 50% OF FOOD. PATIENT AGREES WITH POC. ASKED THAT ANEUDY STOP THE ORDER FOR NEW WALKER. PATIENT STATES THAT SON HAS TWO NEW ONES AND HE WILL USE ONE OF THOSE. PATIENT EXPECTED TO DC TOMORROW.
[2021-02-24 19:08] VITALS: BP 121/72
[2021-02-25 02:51] LABS: INR 2.45; PROTIME 25.6 Seconds (10.5-12.1)
[2021-02-25 02:52] LABS: ALBUMIN 2.8 g/dL (3.4-5.0); CALCIUM 9.5 mg/dL (8.5-10.1); PHOSPHORUS 3.4 mg/dL (2.6-4.7); POTASSIUM 4.3 mmol/L (3.5-5.1)
--- NOTE | 2021-02-25 04:18 | NUR ---
RECEIEVED THE PATIENT AT 1900H.PATIEN TIS ALERT AND ORIENTED X4.ASSESSMENT DONE CHARTED.MEDS GIVEN PER MAY.FALL PREVENTION MEASURES MAINTAINED.ALL NEEDS ATTENDED.TO CONTINOUSLY MONITOR.
[2021-02-25 05:27] VITALS: BP 131/72
[2021-02-25 07:37] VITALS: BP 105/60
[2021-02-25 11:28] VITALS: BP 104/67
[2021-02-25 12:24] VITALS: BP 104/67
[2021-02-25 13:02] VITALS: BP 104/67
--- NOTE | 2021-02-25 16:54 | NUR ---
Patient to dc home. he does not need walker as his son has one to give him. He does not want HH care. He is agreeable to home oxygen. Sat/ex completed patient with oxygen need for 2 liters with activity. Arranged with zeferino. Delivered tank to room. Verified address.
== END 2021-02-25 15:44 | disposition home or self-care (01) | DRG 291 ==
LOC: ER 09:54 → EROBS 14:00 → 2N 14:00
PROVIDERS: Emergency Medicine; Hospitalist; ADMIT Hospitalist; ATTEND Hospitalist
DX: I50.31 Acute diastolic (congestive) heart failure (principal); R65.11 Systemic inflammatory response syndrome (SIRS) of non-infectious origin with acute organ dysfunction; I35.0 Nonrheumatic aortic (valve) stenosis; I48.91 Unspecified atrial fibrillation; Z20.822 Contact with and (suspected) exposure to COVID-19; Z86.73 Personal history of transient ischemic attack (TIA), and cerebral infarction without residual deficits; Z92.3 Personal history of irradiation; Z92.21 Personal history of antineoplastic chemotherapy; Z93.3 Colostomy status; Z79.01 Long term (current) use of anticoagulants; Z85.038 Personal history of other malignant neoplasm of large intestine; Z87.891 Personal history of nicotine dependence; Z88.8 Allergy status to other drugs, medicaments and biological substances; Z79.899 Other long term (current) drug therapy; Z90.49 Acquired absence of other specified parts of digestive tract
CPT/HCPCS: 10081